=== PATIENT | male | born 1975 | race Caucasian/White ===

== ENCOUNTER 2021-06-12 08:31 | Emergency (ER) | payer OTHER ==
[~2021-06-12] VITALS: Ht 188 cm; Wt 108.9 kg
[2021-06-12 08:40] VITALS: BP 148/95
[2021-06-12] MEDS ORDERED: HYDROCODON-ACE1 EAC7 PO ×2 (09:00→09:33)
[2021-06-12] MEDS ORDERED: PREDNISONE 20 M20 M1 PO ×2 (09:00→09:33)
== END 2021-06-12 09:11 | disposition home or self-care (01) ==
LOC: M.ERS 08:31
DX: M10.071 Idiopathic gout, right ankle and foot (principal)